=== PATIENT | female | born 1985 | race Two or more races ===

== ENCOUNTER 2021-02-09 18:42 | Emergency (ER) | payer OTHER ==
[~2021-02-09] VITALS: Ht 167.6 cm; Wt 73.5 kg
[2021-02-09 20:01] VITALS: BP 119/78
--- NOTE | 2021-02-09 20:01 | NUR ---
PT AMBULATORY TO LOBBY TO A/W BED.
--- NOTE | 2021-02-09 20:59 | NUR ---
PT brought back from ultrasound via w/c.
--- NOTE | 2021-02-09 21:50 | NUR ---
PT TAKEN TO BED 4
--- NOTE | 2021-02-09 21:51 | NUR ---
AMBULATED TO ED 4
--- NOTE | 2021-02-09 22:13 | NUR ---
Nayla hudson in [facility] - 02/09/21 [address] FERGUSON AT [facility] FOR EVALUATION
--- NOTE | 2021-02-09 22:13 | NUR ---
Dr. Beck examining patient.
[2021-02-09] MEDS ORDERED: ACET-8386 PO (22:22)
[2021-02-09] MEDS ORDERED: HYDROcodone/APAP 5/325 MG 1 TAB TAB PO ONE (22:25)
--- NOTE | 2021-02-09 22:30 | NUR ---
CLEARED FOR DISHCARGE AT THIS TIME. NO OTHER COMPLAINTS OR CONCERNS AT THIS TIME FOLLOWING DISHCARGE TEACHING. ADVUSED TO RETURN IF CONDITION WORSENS.
[2021-02-09 22:32] VITALS: BP 122/81
== END 2021-02-09 22:30 | disposition home or self-care (01) ==
LOC: MED 18:42
DX: S80.12XA Contusion of left lower leg, initial encounter (principal); X50.0XXA Overexertion from strenuous movement or load, initial encounter; Y93.89 Activity, other specified; Y92.89 Other specified places as the place of occurrence of the external cause; Y99.8 Other external cause status
CPT/HCPCS: 93970; 99284; Q0092